=== PATIENT | female | born 1945 | race Caucasian/White ===

== ENCOUNTER 2018-06-25 00:53 | Outpatient (CLI) | payer MEDICARE, BC, SELFPAY ==
--- NOTE | 2018-06-25 14:30 | DI.MAMMO_ITS ---
SYMPTOM/DIAGNOSIS: 6 MONTH F/U ADN MAMMO R92.8 LEFT BREAST MAMMOGRAM: 06/25/18 Mammograms were interpreted according to the usual protocol including computer analysis with CAD system, tomosynthesis and C view imaging. Today's mammogram was obtained to follow a questionable area of asymmetric density seen on previous examination of 11/29/17 The findings are less prominent on the current examination. No new mass or clumped microcalcification is seen. CONCLUSION: No specific evidence of malignancy at this time. I would suggest routine screening examinations resume with bilateral mammogram in six months. Category 3, breast density category B. MQSA ASSESSMENT OF FINDINGS: Probably benign. Six month follow-up recommended. Category 3. Patient will receive a letter notifying them of these results. BI-RADS category B. There are scattered areas of fibroglandular density.
== END 2018-06-25 01:13 ==
PROVIDERS: PCP Nurse Practitioner Family; Visit Provider Nurse Practitioner Gerontology
DX: R92.8 Other abnormal and inconclusive findings on diagnostic imaging of breast (principal)
CPT/HCPCS: 77061; 77065; G0279

== ENCOUNTER 2018-12-19 04:13 | Outpatient (CLI) | payer MEDICARE, BC, SELFPAY ==
[2018-12-19 12:12] LABS: Anion Gap 10.4 mmol/L (3-11); BUN 23 mg/dL (7-18); CO2 29.6 mmol/L (21.0-32.0); CREATININE 0.55 mg/dL (0.55-1.02); Calcium 9.5 mg/dL (8.5-10.1); Chloride 103 mmol/L (98-107); Cholesterol 220 mg/dL (50-200); Glucose 92 mg/dL (70-100); HDL Cholesterol 67 mg/dL (40-60); Hemoglobin A1C 5.3 % (4.5-6.2); LDL CHOLESTEROL 132 mg/dL (<100); Potassium 3.8 mmol/L (3.5-5.1); Sodium 143 mmol/L (136-145); Triglyceride 88 mg/dL (30-150)
== END 2018-12-19 04:33 ==
PROVIDERS: PCP Nurse Practitioner Family; Visit Provider Nurse Practitioner Family
DX: E78.5 Hyperlipidemia, unspecified (principal); R79.89 Other specified abnormal findings of blood chemistry
CPT/HCPCS: 36415; 80048; 80061; 83721; 83036

== ENCOUNTER 2018-12-22 00:24 | Outpatient (CLI) | payer MEDICARE, BC, SELFPAY ==
--- NOTE | 2018-12-22 13:00 | DI.MAMMO_ITS ---
SYMPTOM/DIAGNOSIS: SCREENING, Z12.31 MAMMOGRAMS: Mammograms were interpreted according to the usual protocol including computer analysis with CAD system, tomosynthesis and C view imaging. Comparison is made with exams from 2597-2339. The breasts are composed of scattered fibroglandular densities, breast density, Category B. A biopsy marker clip is again noted in the inferior central right breast. No suspicious masses or suspicious microcalcifications are seen. There are a few benign appearing calcifications in the central right breast. IMPRESSION: Category 2, negative mammogram with benign findings. Yearly screening mammography is recommended. SA ASSESSMENT OF FINDINGS: Negative with benign findings. Category 2. Patient will receive a letter notifying them of these results. BI-RADS category B. There are scattered areas of fibroglandular density.
== END 2018-12-22 00:44 ==
PROVIDERS: PCP Nurse Practitioner Family; Visit Provider Nurse Practitioner Family
DX: Z12.31 Encounter for screening mammogram for malignant neoplasm of breast (principal)
CPT/HCPCS: 77063; 77067

== ENCOUNTER 2020-08-24 04:28 | Outpatient (CLI) | payer MEDICARE, BC, SELFPAY ==
[2020-08-24 13:03] LABS: Anion Gap 7.5 mmol/L (3-11); BUN 17 mg/dL (7-18); CO2 30.5 mmol/L (21.0-32.0); CREATININE 0.61 mg/dL (0.55-1.02); Calcium 9.6 mg/dL (8.5-10.1); Calculated LDL 120 mg/dL (<100); Chloride 104 mmol/L (98-107); Cholesterol 206 mg/dL (<200); Glucose 91 mg/dL (74-106); HDL Cholesterol 70 mg/dL (40-60); Potassium 4.1 mmol/L (3.5-5.1); Sodium 142 mmol/L (136-145); Triglyceride 80 mg/dL (<150)
== END 2020-08-24 04:48 ==
PROVIDERS: PCP Nurse Practitioner Family; Visit Provider Nurse Practitioner Family
DX: I10 Essential (primary) hypertension (principal); E78.5 Hyperlipidemia, unspecified
CPT/HCPCS: 36415; 80048; 80061

== ENCOUNTER 2020-09-21 01:58 | Outpatient (CLI) | payer MEDICARE, BC, SELFPAY ==
--- NOTE | 2020-09-21 07:15 | DI.MAMMO_ITS ---
EXAM: MAMMO SCREENING CLINICAL HISTORY: screening,Z12.39 TECHNIQUE: Mammograms were interpreted according to the usual protocol including computer analysis w Sky[employer] CAD system, tomosynthesis and C-view imaging. COMPARISON: 2011 through 2018 FINDINGS: The breasts are composed of scattered fibroglandular densities, Breast Density category B. No suspicious masses or suspicious microcalcifications are seen. No skin thickening or abnormal axillary lymph nodes are seen. A biopsy marker clip is seen in the in ferior right breast. There has been no significant change from prior exams. IMPRESSION: BI-RADS Category 1, Negative mammogram Yearly screening mammography is recommended. Breast Density - Category B, scattered fibroglandular densities. A negative radiographic report should not delay biopsy if a dominant or clinically suspicious mass is present. Up to ten percent of cancers are not identified on mammography. A negative report may reinforce clinical impression. Adenosis and dense breasts may obscure an underlying neoplasm. False positive reports average 6 to 10%. Patient will receive a letter notifying them of these results.
== END 2020-09-21 01:59 ==
LOC: DI 01:59
PROVIDERS: PCP Nurse Practitioner Family; Visit Provider Nurse Practitioner Family
DX: Z12.31 Encounter for screening mammogram for malignant neoplasm of breast (principal)
CPT/HCPCS: 77063; 77067

== ENCOUNTER 2022-06-15 01:33 | Outpatient (CLI) | payer MEDICARE, BC, SELFPAY ==
--- OUTSIDE RECORDS SUMMARY | 2022-06-15 01:38 | XMS_ITS | Encounter Summary ---
:1945 Author Organization [facility] Address [address] [place] [address] Care Team Providers Name Role Phone Unknown, Provider Primary Care Provider Encounter Details Date Type Department Care Team Description 12/31/2016 Hospital Encounter [facility] - Taylor Hawley MD [address] [address] [address] [place] [phone] (Wo rk) Social History Tobacco Use Types Packs/Day Years Used Date Never Assessed Sex Assigned at Date Recorded Female 05/06/2020 11:10 EDT documented as of this encounter Discharge Diagnoses Diagnosis D48.5 Neoplasm of uncertain behavior of skin-D48.5[ICD-10-CM] documented in this encounter Discharge Disposition Disposition Code Departure Means Destination Home or Self Care documented in this encounter Plan of Treatment Not on filedocumented as of this encounter Visit Diagnoses Not on filedocumented in this encounter Care Teams Foundation Digger Relationship Specialty Start Date End Date Unknown, Provider, PCP - General 05/12/09 documented as of this encounter
--- OUTSIDE RECORDS SUMMARY | 2022-06-15 01:38 | XMS_ITS | Encounter Summary ---
:1945 Author Organization [facility] Address [address] [place] [address] Care Team Providers Name Role Phone Unknown, Provider Primary Care Provider Encounter Details Date Type Department Care Team Description 10/17/2012 Results Only [facility] Nasrin Espinoza MD Laboratory Services - [address] [facility] [address] [facility] [address] [place] [phone] (Wo rk) Social History Tobacco Use Types Packs/Day Years Used Date Never Assessed Sex Assigned at Date Recorded Female 05/06/2020 11:10 EDT documented as of this encounter Plan of Treatment Not on filedocumented as of this encounter Procedures Procedure Name Priority Date/Time Associated Diagnosis Comme [facility] SURGICAL PATHOLOGY Routine 10/17/2012 14:14 Resul ts for this EST procedure are i n the results section. documented in this encounter Results SURGICAL PATHOLOGY (10/17/2012 14:14 EST) Pathology Report: SURGICAL PATHOLOGY REPORT [facility] ST[facility] Reports generated via electronic interface contain maria luz ginal data; LAB however they are lacking the format of the original re port. Caution should be taken when reading/interpreting unfo rmatted reports. Name: ? MICHOAACNO HWANG ? Accession #: ? [id number] ? : ? 1945 (Age: 67) ??F ? Collect Date: ? 10/17/2012 ? Location: ? [facility] ? Receive Date: ? 013 ? Provider: NASRIN ESPINOZA MD Copy to: KIESHA NAIK MD ? Final Pathologic Diagnosis: A. ?Skin of abdomen, right, shave biopsy: 1. ?Hemangioma. ?? B. ?Skin of arm, left anterior upper, sha ve biopsy: 1. ?Melanocytic nevus, compound lentigino us type, with unusual architectural features and mild cytologic atypia. ? - Nevus does not exte nd to edges of shave biopsy specimen in the plane of the sections ?? examined. Microscopic Description: (A) ?There is a dome-shaped papule formed by a proliferation of small vascular channels that has a lobular architecture. ??The vessels are lined by an attenuated endothelium. ??Some of the vessels are scarlett ested. ??The overlying epidermis has a diminished rete ridge pattern. ?? (B) ?The epider mis shows mild hyperplasia consisting of thin and clubbed rete ridges. ??There is a compound proliferation of me lanocytes. ??The intraepidermal component consists of rare nests but is predominated by individual cells in a lentig inous pattern. ??The nests are small and located at the tips of rete ridges. ??T he individual melanocytes are generally evenly spaced along the dermal-epidermal j unction. ??The melanocytes are slightly enlarged and have dark nuclei. ??The dermal component consists of s mall nests of similar cells. ??There is abundant m elanin pigment within the epidermis, stratum corneum, and dermal melanophages. ??(Dr. Bush)/michael Document reviewed and electronically signed by: ELSA BUSH MD Report ??Date: 10/20/2012 16:05 By the signature above, the attending physician certif ies that he/she has personally conducted a gross and/or microscopic examin ation of the described specimens and rendered or confirmed the above diagnosi s. Specimen(s) Received: A. ?R abdomen shave biopsy B. ? Left anterior upper arm shave biopsy Clinical History: ? A. Bright drake-red papule, Ddx: ??Hemangioma vs melanoma; B. Irregular brown macule, Ddx: ??Atypica l nevus vs melanoma; clinical diagnosis code: ??238.2 x2 ? Gross Description: ? Received in formalin labelled [place], Elva and A-R abdomen is a 0.6 x 0.5 cm irregular shave biopsy of white skin. ??There is a central 0.4 x 0.3 by less than 0.1 cm ovoid, b rown-black, smooth papule. ??The specimen is bisected and entirely submitted as (A1). Received in formalin labelled MitchElva and B-left anterior upper arm is a 0.5 x 0.5 cm irreg ular shave biopsy of white skin. ??There is a central 0.3 x 0.2 cm irregular pederson-b rown macule. ??The specimen is bisected and entirely submitted as (B1). ??(Oscar Chavarria)/[facility] End of Report Specimen Performing Organization Address City/State/ZIP Code Phon e Number [facility] [address] [place] [address] SERVICES [facility] [address] [place] [address] documented in this encounter Visit Diagnoses Not on filedocumented in this encounter Care Teams Software Test Technician Relationship Specialty Start Date End Date Unknown, Provider, PCP - General 05/12/09 documented as of this encounter
--- OUTSIDE RECORDS SUMMARY | 2022-06-15 01:38 | XMS_ITS | Clinical Summary ---
:1945 Author Organization [facility] Address [address] [place] [address] Care Team Providers Name Role Phone Unknown, Provider Primary Care Provider Social History Tobacco Use Types Packs/Day Years Used Date Never Assessed Sex Assigned at Date Recorded Female 05/06/2020 11:10 EDT Plan of Treatment Health Maintenance Due Date Last Done Comments Fall Risk Screening 2009 Insurance Payer Benefit Plan / Subscriber ID Effective Phone Address T ype Group Dates MEDICARE MEDICARE A/B [id number] 2009-Pres [address] Medicare GL ent [id number] [place] [address] [facility] [id number] 2018-Prese [phone] [address] [facility] [employer] [address] [place] [address] Care Teams Unit Clerk Relationship Specialty Start Date End Date Unknown, Provider, PCP - General 05/12/09
--- OUTSIDE RECORDS SUMMARY | 2022-06-15 01:38 | XMS_ITS | Encounter Summary ---
:1945 Author Organization [facility] Address [address] [place] [address] Care Team Providers Name Role Phone Unknown, Provider Primary Care Provider Encounter Details Date Type Department Care Team Description 10/17/2012 Hospital Encounter [facility] - Taylor Hawley MD [address] [address] [address] [place] [phone] (Wo rk) Social History Tobacco Use Types Packs/Day Years Used Date Never Assessed Sex Assigned at Date Recorded Female 05/06/2020 11:10 EDT documented as of this encounter Discharge Disposition Disposition Code Departure Means Destination Home or Self Care documented in this encounter Plan of Treatment Not on filedocumented as of this encounter Visit Diagnoses Not on filedocumented in this encounter Care Teams Fashion Buyer Relationship Specialty Start Date End Date Unknown, Provider, PCP - General 05/12/09 documented as of this encounter
--- OUTSIDE RECORDS SUMMARY | 2022-06-15 01:38 | XMS_ITS | Encounter Summary ---
:1945 Author Organization [facility] Address [address] [place] [address] Care Team Providers Name Role Phone Unknown, Provider Primary Care Provider Encounter Details Date Type Department Care Team Description 05/11/2009 Orders Only [facility] Christelle Hoff MD Laboratory Services - Daisy GALLEGOS [facility] [address] [place] [address] [address] [facility] [place] [address] [phone] Social History Tobacco Use Types Packs/Day Years Used Date Never Assessed Sex Assigned at Date Recorded Female 05/06/2020 11:10 EDT documented as of this encounter Plan of Treatment Not on filedocumented as of this encounter Procedures Procedure Name Priority Date/Time Associated Comments Diagnosis HPV DETECTION, HIGH Routine 05/11/2009 23:20 Resu lts for this RISK TYPES EDT procedure are i n the results section. CYTOPATHOLOGY Routine 05/11/2009 0:00 Results for this EDT procedure are i n the results section. documented in this encounter Results HUMAN PAPILLOMA VIRUS DNA TEST (05/11/2009 23:20 EDT) Specimen Description Cervix, ThinPrep [facility] vial Result Negative for HPV KELLY BETHEA types 16, 18, 31, 33, 35, 39, 45, 51, 52, 56, 58, 59, and 68. Report Status Final [facility] 05/24/2009 Specimen Performing Organization Address City/State/ZIP Code Phon e Number [facility] [address] [place] [address] SERVICES [facility] [address] [place] [address] CYTOPATHOLOGY (05/11/2009 0:00 EDT) Pathology Report: CYTOPATHOLOGY REPORT ? [facility]OSH [facility] ? LAB Reports generated via electr [employer] interface contain original data; ? however they are lacking the format of the original report. ? Caution should be taken when reading/interpreting unformatted reports. ? Name: ? MICHOACANO HWANG ? Accession #: ? [id number] ? : ? 1945 (Age: 63) ??F ?Collect Date: ? 05/11/2009 ? Location: ? [facility] ? Receive Date: ? 05/12/2009 ? Provider: ?KIESHA GRES SER MD ? Copy to: ? Specimen/Source: ? Pap Test, Cervix/Endocervix, ThinPrep Imaging System ? with manual evaluation ? Last Menstrual Period: ? Menstrual/ Status: ? Post Menopausal ? Other: ? HPVDX - HPV testing requeste d regardless of diagnosis on current ThinPrep Pap ?? test. ? SPECIMEN ADEQUACY ? Satisfactory for Eval uation ? - transformation zone compon ent present ? - scant squamous epithelial component ? GENERAL CATEGORIZATION ? Negative for Intraepi thelial Lesion or Malignancy ? Document reviewed and electr onically signed by: ? Lynan Khris, CT(ASCP) ? Report Date: ??2008 16:27 ? End of Report ? Specimen Performing Organization Address City/State/ZIP Code Phon e Number [facility] [address] [place] [address] SERVICES [facility] [address] [place] [address] documented in this encounter Visit Diagnoses Not on filedocumented in this encounter Care Teams Counselor Aide Relationship Specialty Start Date End Date Unknown, Provider, PCP - General 05/12/09 documented as of this encounter
--- OUTSIDE RECORDS SUMMARY | 2022-06-15 01:38 | XMS_ITS | Encounter Summary ---
:1945 Author Organization [facility] Address [address] [place] [address] Care Team Providers Name Role Phone Unknown, Provider Primary Care Provider Encounter Details Date Type Department Care Team Description 12/31/2016 Results Only [facility]- Nasrin Lowery MD [phone] [place] [address] [address] [place] [phone] (Wo rk) Social History Tobacco Use Types Packs/Day Years Used Date Never Assessed Sex Assigned at Date Recorded Female 05/06/2020 11:10 EDT documented as of this encounter Plan of Treatment Not on filedocumented as of this encounter Procedures Procedure Name Priority Date/Time Associated Diagnosis Comme [facility] SURGICAL PATHOLOGY Routine 12/31/2016 16:07 Resul ts for this EDT procedure are i n the results section. documented in this encounter Results SURGICAL PATHOLOGY (12/31/2016 16:07 EDT) Pathology SURGICAL PATHOLOGY REPORT [facility] MEDICAL Report: Reports generated via electronic interface conta in original data; CENTER however they are lacking the format of the original re port. LABORATORY Caution should be taken when reading/interpretin g unformatted reports. SERVICES Name: ? MICHOACANO HWANG ? Accession #: ? [id number] ? : ? 1945 (Age: 71) ??F ? Collect Date: ? 12/31/2016 ? Location: ? [facility] ? Receive Date: ? 01/01/20 17 ? Provider: NASRIN FALLON MD Copy to: ? Final Pathologic Diagnosis: SKIN OF THIGH, RIGHT DISTAL POSTERIOR, PUNCH BIOPSY: - Angiokeratoma. ?? Microscopic Description: There is orthohyperkeratosis with intracorneal h emorrhage. ??The epidermis is hyperplastic with papillomatosis and acanthosis. ??Imm ediately beneath the epidermis, there are dilated vessels corey t are filled with erythrocytes. ??(Dr. Bush)/ljn Document reviewed and electronically signed by: ELSA BUSH MD Report ??Date: 01/01/2017 20:21 By the signature above, the attending physician certif ies that he/she has personally conducted a gross and/or microscopic examin ation of the described specimens and rendered or confirmed the above diagnosi s. Specimen(s) Received: Right distal posterior thigh punch biopsy Clinical History: Irregular brown macule, DDx: Atypical ne vus vs. melanoma vs. hemangioma on top of a nevus; clinical diagnosis code: ??D48.5 Gross Description: ? Received in formalin labelled with proper patient identification (initials B, C) and right distal posterior thigh is an ovoid rubbery skin shave, 0.5 x 0.3 x 0.15 cm. The surface is huerta-brown. The margin i s inked. Bisected and entirely submitted in 1. HENRRY Neri (ASCP) 01/01/2017 7:52 AM End of Report Specimen Performing Organization Address City/State/ZIP Code Phon e Number [facility] [address] [place] [id number] SERVICES documented in this encounter Visit Diagnoses Not on filedocumented in this encounter Care Teams Pantograph Machine Set Up Operator Relationship Specialty Start Date End Date Unknown, Provider, PCP - General 05/12/09 documented as of this encounter
--- OUTSIDE RECORDS SUMMARY | 2022-06-15 01:38 | XMS_ITS | Encounter Summary ---
:1945 Author Organization [facility] Address [address] [place] [address] Care Team Providers Name Role Phone Unknown, Provider Primary Care Provider Encounter Details Date Type Department Care Team Description 05/04/2020 Lab Requisition [facility] Reginald Dillon for Pathology & Ez [facility] screening for other Laboratory Medicine - [address] [facility] [address] [place] [phone] Social History Tobacco Use Types Packs/Day Years Used Date Never Assessed Sex Assigned at Date Recorded Female 05/06/2020 11:10 EDT documented as of this encounter Discharge Disposition Disposition Code Departure Means Destination Home or Self Care documented in this encounter Plan of Treatment Not on filedocumented as of this encounter Procedures Procedure Name Priority Date/Time Associated Diagnosis Comme nts COVID-19 ALFARO TEST Today 05/04/2020 10:30 Encounter for Resu lts for this EDT screening for other procedur e are in viral diseases the results section. documented in this encounter Results COVID-19 ALFARO TEST (05/04/2020 10:30 EDT) SARS CoV-2 Nasal [facility] Specimen Source LABORATORIES Patient Race Unknown [facility] LABORATORIES Patient Unknown [facility] Ethnicity LABORATORIES SARS-CoV-2 RNA Undetected Undetected [facility] Result Comment: LABORATORIES SARS-CoV-2 RNA absent. This result does not rule out COVID-19 in the patient, as the sensitivity of the marycarmen t depends on the timing of the specimen collection and t he quality of the specimen. Result should be correlated w ith patient's history and clinical presentation. Method Summary SEE NOTE [facility] Comment: LABORATORIES PKELM- This test uses the PerkinElmer New Coronavirus Nucleic Acid Detection Kit ([employer] and is performed on the PlastiPure instrument and [employer] 7500 Fast Real-Time PCR System. It has rece ived Emergency Use Authorization (EUA) by the U.S. Food and Drug Administration, and is modified from the checker cashier' s instructions with a bridging study. Performance characteristics were verified by [facility] in a [facility] er consistent with CLIA requirements. Fact sheets for this Emergency Use Authorization (EUA) can be found at the following links: https://www.fda.gov/media/043468/download for [facility] re Providers https://www.fda.gov/media/043534/download for Patients Test Performed by: [address] Maintenance Supervisor: Sergey Anthony M.D. Ph.D.; CLIA# [id number] Specimen Swab - Nasal (qualifier value) Performing Organization Address City/State/[facility] Code Phon e Number [facility] [address] [place] [address] documented in this encounter Visit Diagnoses Diagnosis Encounter for screening for other viral diseases documented in this encounter Care Teams Zipper Setter Lockstitch Relationship Specialty Start Date End Date Unknown, Provider, PCP - General 05/12/09 documented as of this encounter
--- OUTSIDE RECORDS SUMMARY | 2022-06-15 01:38 | XMS_ITS | Encounter Summary ---
:1945 Author Organization [facility] Address [address] [place] [address] Care Team Providers Name Role Phone Unknown, Provider Primary Care Provider Encounter Details Date Type Department Care Team Description 04/28/[address] [facility]- Peter Traylor, [address] [place] [address] [address] [place], [place] [id number] (Wo rk) Social History Tobacco Use Types Packs/Day Years Used Date Never Assessed Sex Assigned at Date Recorded Female 05/06/2020 11:10 EDT documented as of this encounter Plan of Treatment Not on filedocumented as of this encounter Procedures Procedure Name Priority Date/Time Associated Diagnosis Comme [facility] SURGICAL PATHOLOGY Routine 04/28/2015 17:15 Resul ts for this EDT procedure are i n the results section. documented in this encounter Results SURGICAL PATHOLOGY (04/28/2015 17:15 EDT) Pathology Report: SURGICAL PATHOLOGY REPORT [facility] Reports generated via electronic interface contain maria luz ginal data; LABORATORY however they are lacking the format of the original re port. SERVICES Caution should be taken when reading/interpreting unfo rmatted reports. Name: ? MICHOACANO HWANG ? Accession #: ? [id number] ? : ? 1945 (Age: 69) ??F ? Collect Date: ? 04/28/2015 ? Location: ? [facility] ? Receive Date: ? 04/29/20 15 ? Provider: PETER MOSES MD Copy to: KIESHA ZHANG MD ? Final Pathologic Diagnosis: APPENDIX, APPENDECTOMY: - ??Acute appendicitis and periappendicitis. Document reviewed and electronically signed by: Ruth Roca MD Report ??Date: 05/06/2015 15:16 By the signature above, the attending physician certif ies that he/she has personally conducted a gross and/or microscopic examin ation of the described specimens and rendered or confirmed the above diagnosi s. Specimen(s) Received: Appendix Clinical History: Appendicitis Gross Description: ? Received fresh labell ed with proper patient identification (initials B, C) and appendix is a vermiform appendix ( 4.5 cm in length x 0.7 cm in diameter) with a moderate amount of at tached mesoappendix. The proximal margin is stapled. ? The serosa is pederson-pin k and focally hemorrhagic with a thick white exudate that extends into the mesoappendix. The cut surf aces show pederson-pink, partially hemorrhagic mucosa with a discernible perforation site . The average wall thickness is approximately 0.3 cm. The proximal margin is inked blue. ? The section adjacent to the proxi mal stapled margin and one-half of the longitudinally bisected distal tip are s ubmitted in 1 and three phone representative cross sections are submitted in 2. 05/02/2015 3:18 PM End of Report Specimen Performing Organization Address City/State/ZIP Code Phon e Number [facility] [address] [place] [address] SERVICES documented in this encounter Visit Diagnoses Not on filedocumented in this encounter Care Teams Auto Body Estimator Relationship Specialty Start Date End Date Unknown, Provider, PCP - General 05/12/09 documented as of this encounter
[2022-06-15 12:32] LABS: Anion Gap 7.4 mmol/L (3-11); BUN 23 mg/dL (7-18); CO2 29.6 mmol/L (21.0-32.0); CREATININE 0.6 mg/dL (0.55-1.02); Calcium 9.6 mg/dL (8.5-10.1); Calculated LDL 145 mg/dL (<100); Chloride 105 mmol/L (98-107); Cholesterol 231 mg/dL (<200); Estimated GFR 92.39 (mL/min/1.73m2); Glucose 94 mg/dL (74-106); HDL Cholesterol 70 mg/dL (40-60); Potassium 4.1 mmol/L (3.5-5.1); Sodium 142 mmol/L (136-145); Triglyceride 82 mg/dL (<150)
== END 2022-06-15 01:34 | disposition home or self-care (01) ==
LOC: LOS 01:33
PROVIDERS: PCP Nurse Practitioner Family; Visit Provider Nurse Practitioner Family
DX: E78.5 Hyperlipidemia, unspecified (principal); I10 Essential (primary) hypertension
CPT/HCPCS: 36415; 80048; 80061

== ENCOUNTER 2022-07-29 12:12 | Emergency (ER) | payer MEDICARE, BC, SELFPAY ==
--- NOTE | 2022-07-29 12:15 | DI.CT_ITS ---
Exam(s) CT HEAD FACIAL WO EXAM: CT HEAD FACIAL WO CLINICAL HISTORY: fell, hit face, r/o fx. TECHNIQUE: Imaging Protocol: Axial computed tomography images with coronal and sagittal reformatted images were created and reviewed COMPARISON: No exams were available for comparison FINDINGS: CT Head: Ventricles and Extra axial spaces: Normal in size and morphology for the patient's age. Hemorrhage: None. Cerebral parenchyma: Minimal atrophy. Minimal small vessel changes. Midline shift: None. Brainstem/Cerebellum: Normal. Calvarium: Normal. Visualized Paranasal sinuses/Mastoids: Clear. Soft Tissues: Unremarkable. CT Face: Facial Bones: No fracture is noted in facial bones. Sinuses and Mastoids: Mucous retention at floors of the maxillary sinuses, left greater than right. Minimal mucosal thickening sphenoids. Globes, extraocular muscles, optic nerves and retrobulbar fat: Normal. Upper aerodigestive tract: Normal. Mandible and bilateral temporomandibular joints: Normal. Soft tissues: Small skin nodule midline frontal region. IMPRESSION: 1. No acute intracranial process. 2. No acute facial fracture. Mild chronic maxillary sinus disease. RADIATION DOSE DELIVERED: 1,590.77mGy.cm Total DLP DATA REPOSITORY: All CT scans at this facility are submitted to the National Radiology Data Registry (NRDR) Dose Index Registry (DIR) with the [employer] (ACR). RADIATION OPTIMIZATION: All CT scans at this facility use at least one of these dose optimization te chniques: automated exposure control; mA and/or kV adjustment per patient size (includes targeted exa ms where dose is matched to clinical indication); or iterative reconstruction.
[2022-07-29 12:23] VITALS: BP 163/76; PULSE 68; RESP 16; TEMP 36.3; O2SAT 100
--- NOTE | 2022-07-29 12:33 | W.ED.GENAD ---
Discharge Plan Disposition Patient Disposition: Home Condition: Good Discharge Details Clinical Impression: Laceration of scalp, Concussion Primary Care Provider: Ann Coffey ED Provider: Paulo Lyles Home Meds and New Rx's Prescriptions: No Action PreserVision AREDS-2 250-90-40-1 mg capsule 1 tab PO BID SCOT MAG ZINC + D TAB 1 EACH tablet 1 tab PO DAILY ascorbic acid (vitamin C) [Vitamin C] 500 MG tablet 500 mg PO DAILY red yeast rice 600 mg tablet 1,200 mg PO DAILY vitamin B complex capsule 1 cap PO DAILY Label Comments: B-50 benazepril-hydrochlorothiazide 20-25 mg tablet 1 tab PO DAILY Qty: 90 4RF Discharge Instructions Instructions: Care For Your Stitches (ED), Concussion (ED) Additional Instructions: At this time the CT scan of your head is negative for any bleed or significant abnormality. The laceration was sutured, please keep this area dry for the next 48 hours. You can then gently wash it with soap and water as needed. Please return in 7 to 10 days to have your sutures removed. If you notice any drainage, redness, or other abnormality at your suture site, please return immediately for reassessment. If you have any worsening of your symptoms please return immediately. Please be very cognizant of any evidence of worsening headache, vomiting, weakness, numbness, dizziness, decreased concentration, memory problems, sleep disturbance, irritability, fatigue, visual disturbances, judgment problems, depression, or anxiety. These may represent a worsening of your condition or a different, or worse pathology. Please either return immediately for reevaluation or follow up with your primary care provider immediately for continued assessment, reassessment, and management. Please avoid any contact sports, or activities which could cause jarring of your head. A second repeat injury can cause significant and permanent brain damage. After you have complete resolution of any of the symptoms noted above please wait one COMPLETE week until you resume normal gentle physical activity. If you have any return of the symptoms after this, please again wait 1 week after you have complete resolution of your symptoms to return to gentle and normal activities. Referrals: Ann Coffey, JASSI [Primary Care Provider] - Medical Decision Making 76-year-old female with past medical history of high cholesterol, and hypertension, presents today for follow-up. Tetanus was updated in 2016. Patient states that she was in her house watering her plants when she was wearing her clumsy clogs and she tripped over them, she fell, and hit her right brow and the back of her head. No loss of consciousness, she recalls the entire event. She is not unable blood thinners. Due to the nature of the fall she came in for further evaluation and assessment. She denies any headache or neck pain. Mild contusion over her right elbow right scapula and left knee, but no pain. No other complaints at this time. No other modifying factors Exam demonstrates a well-appearing female, small laceration over the right brow, no other evidence of significant trauma. Due to the age and mechanism we will get a CT scan of the head and face to rule out fracture. Will suture her laceration, monitor closely and reassess. [address] scan results have returned, no evidence of significant acute process. Patient feels well. Patient shows no evidence of neurologic deficit on exam. Laceration was cleaned, the area was anesthetized with lidocaine, 3 simple interrupted sutures were placed with 5-0 Ethilon. Patient tolerated this well. Small amount of Dermabond was applied to the area. Patient feels well and will be discharged home. Tetanus is up-to-date. Discussed red flags for which to return. I have extensively reviewed the treatment plan and discharge instructions with the patient and their family. I have addressed all patient concerns at this time. The patient and family was made aware of what symptoms to monitor for that would warrant a return to the emergency department. Discussed the plan with the patient and family, they demonstrate verbal understanding and agreement with our assessment and plan at this time. The documentation in this chart was dictated using [employer] dictation software. Please excuse any dictation errors. FINDINGS: Brain: No acute post-traumatic brain injury. Symmetric prominence of the cortical and cerebellar sulci. Mild small vessel ischemic change. Cerebral ventricles: Normal configuration of the ventricles. Paranasal sinuses: Maxillary sinus mucoperiosteal disease. Mastoid air cells: No mastoid effusion. Bones/joints: No acute calvarial injury. Soft tissues: No significant scalp hematoma. IMPRESSION: No acute post-traumatic brain injury FINDINGS: Beam hardening artifact is identified in association with dental amalgam. Orbital cavities: Unremarkable appearance of the globes, optic nerves, and extraocular muscles. Bones/joints: No acute facial fracture. Paranasal sinuses: Asymmetric inflammatory change in the maxillary sinuses, right greater than left. Soft tissues: No significant facial soft tissue swelling. 5 mm cutaneous nodule in the frontal midline. IMPRESSION: No acute facial fracture. Thank you for allowing us to participate in the care of your patient. Dictated and Authenticated by: Keith Negron MD 07/29/2022 1:34 PM Eastern Time ([place] & [place]) HPI General Date/Time Provider Initiated Documentation: 07/29/22 12:23. HPI Narrative: 76-year-old female with past medical history of high cholesterol, and hypertension, presents today for follow-up. Tetanus was updated in 2016. Patient states that she was in her house watering her plants when she was wearing her clumsy clogs and she tripped over them, she fell, and hit her right brow and the back of her head. No loss of consciousness, she recalls the entire event. She is not unable blood thinners. Due to the nature of the fall she came in for further evaluation and assessment. She denies any headache or neck pain. Mild contusion over her right elbow right scapula and left knee, but no pain. No other complaints at this time. No other modifying factors Related Data Home Medications Medication Instructions Recorded Confirmed Scot Mag Zinc + D Tab 1 tab PO DAILY 04/02/12 07/29/22 ascorbic acid (vitamin C) 500 mg 500 mg PO DAILY 05/25/13 07/29/22 tablet (Vitamin C) red yeast rice 600 mg tablet 1,200 mg PO DAILY 12/15/18 07/29/22 vitamin B complex 1 cap PO DAILY 12/15/18 07/29/22 benazepril 20 1 tab PO DAILY #90 tabs 09/11/21 07/29/22 mg-hydrochlorothiazide 25 mg tablet vit C 250 mg-vit E 90 mg-zinc 40 1 tab PO BID 06/06/22 07/29/22 mg-copper 1 dm-bezwjm-zfdaol capsule (PreserVision AREDS-2) Previous Rx's Medication Instructions Recorded benazepril 20 1 tab PO DAILY #90 tabs 09/11/21 mg-hydrochlorothiazide 25 mg tablet Allergies Allergy/AdvReac Type Severity Reaction Status Date / Time No Known Drug Allergies Allergy Unverified 07/29/22 12:29 General Stated Complaint: Trauma JING: 2 Review of Systems All systems reviewed & are unremarkable except as noted in HPI and below PFSH All Active Problems (Updated 07/29/22 @ 14:23 by Paulo Lyles DO) Laceration of scalp (Acute) Concussion (Acute) Hyperlipidemia (Chronic) Essential hypertension (Chronic) Medical History Basal cell carcinoma Left cheek Malignant melanoma of skin (08/11/07) Right inner thigh Surgical History S/P appendectomy (04/28/15) S/P right rotator cuff repair (01/17/16) S/P tonsillectomy and adenoidectomy (~1950) Family History Mother , at 100 Essential hypertension Breast cancer Macular degeneration Father , at 24 while fighting in WW[place] No problems noted. Son No problems noted. Maternal Grandfather , at 31 of TB No problems noted. Maternal Grandmother Colitis Paternal Grandfather Stroke Paternal Grandmother Stroke Social History Smoking/Tobacco Use Status: Former Tobacco Use Quit Date: 08/12/70 Tobacco: How many years used: 4 Second Hand Exposure: Yes Smoking risk assessment performed?: Yes Alcohol Intake: current Alcohol Intake frequency: 0-2 drinks per day Alcohol type: wine Drug use: Never Substance use type: former substance user and marijuana Caregiver/Support person: No Household members: spouse Housing: house Communication Needs: None Do you need help understanding health information?: Never Pets and animals: No Sexually active: Yes Do you think of yourself as: straight/heterosexual Current gender identity: female What is your relationship status?: How often do you talk on the phone with friends or family?: three or more times per week How often do you get together with friends or relatives?: once per week How often do you attend yarsani or confucianist services?: 1-3 times per year Do you belong to any clubs or organized social groups?: yes Panel score (0-1 are the most socially isolated patients): 3 NHANES result reviewed/action taken: Yes What type of physical activity do you participate in: walking, bicycling and other Details: PT Duration: 45-60 minutes/day Frequency: 3-4 times per week Tawnya/Anabaptist: Restoration Special tawnya needs: No Seatbelt use: always Drive intox or ride w/intox rental car ferry driver: No Do you feel safe at home: Yes Do you feel safe in your relationship?: Yes Female Reproductive History Menstrual Menopause type: natural History History 6 Para Hx # Term Pregnancies Multiple births Hx # Pregnancies Ectopic pregnancies AB induced Hx Number of Living Children 1 AB spontaneous 5 Exam Narrative Exam Narrative: 1.Const: Well-nourished, Well-developed, appearing stated age 2.Eyes: PERRL, no conjunctival injection, and symmetrical lids. 3.ENT: Atraumatic external nose and ears. Moist MM. Neck: Symmetric, trachea midline, No thyromegaly. There is no evidence of raccoon eyes, randle sign, CSF rhinorrhea, mastoid tenderness, cranial crepitus, hemotympanum, exophthalmos, or hyphema. Patient demonstrates intact dentition with no signs of tooth avulsion or fracture, no signs of jaw deformity, no evidence of a LeFort's fracture, with an intact palate, nose and orbital region. There is no evidence of a nasal septal hematoma. No proptosis. Jaw closes symmetrically. Airway is clear. There is a small linear laceration about 3-1/2 cm on the right brow. No deep tissue involvement. Mild oozing. 4.CVS: +S1/S2, No murmurs or gallops. Peripheral pulses 2+ and equal in all extremities. Brisk capillary refill in all extremities. 5.RESP: Unlabored respiratory effort. Clear to auscultation bilaterally. No wheezes rales or rhonchi 6.GI: Soft, Nontender/Nondistended, No hepatosplenomegaly. No guarding or rebound. 7.MSK: Normocephalic/Atraumatic, Extremities w/o deformity or ttp No cyanosis or clubbing, Normal movement of all extremities. No midline cervical thoracic or lumbar spine tenderness. 8.Skin: Warm, Dry. 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 Sensation grossly intact, no focal neurologic deficits. All 6 cardinal planes of vision are fully intact. No evidence of rotatory or vertical nystagmus. The patient demonstrated a normal fmudmj-deyf-xhotbk, good dexterity. There was no evidence of dysdiadochokinesia. Patient was able to ambulate without difficulty. There was no wide-based gait. Romberg testing was normal. Mjef-dd-gscg testing was normal. Sensation was intact bilaterally as well as muscle strength bilaterally for all extremities. Patient was able to verbalize butter cup with no slurring, or miss pronunciation. 10.Psych: (AAO) x3. Appropriate mood and affect Course Vital Signs Vital signs: Vital Signs Temperature 36.3 C L 07/29/22 12:23 Pulse 68 07/29/22 12:23 Respiratory Rate 16 07/29/22 12:23 Blood Pressure 163/76 H 07/29/22 12:23 Pulse Oximetry 100 07/29/22 12:23 Temperature 36.3 C L 07/29/22 12:23 Temperature Source Temporal Artery Scan 07/29/22 12:23 Pulse 68 07/29/22 12:23 Respiratory Rate 16 07/29/22 12:23 Blood Pressure 163/76 H 07/29/22 12:23 Blood Pressure Position Sitting 07/29/22 12:23 Pulse Oximetry 100 07/29/22 12:23 Oxygen Delivery Method Room Air 07/29/22 12:23 Oxygen Flow Rate 0 07/29/22 12:23 Pain Level 5 07/29/22 12:23 Procedures Laceration Laceration 1: Site: face Side (If applicable): right Size (cm): 3 Description: linear Depth: simple, single layer Local Anesthetic: Lidocaine 1% Amount of anesthesia used (mL): 5 Pre-repair: wound explored, irrigated extensively and deep structures intact Skin layer closed with: nylon Size (cm): 5-0 Number of sutures: 3 Technique: simple, interrupted
--- NOTE | 2022-07-29 13:34 | DI.VRAD_ITS ---
PROCEDURE INFORMATION: Exam: CT Head Without Contrast Exam date and time: 07/29/2022 1:07 PM Age: 76 years old Clinical indication: Other: Fell, hit face, R/O FX TECHNIQUE: Imaging protocol: Computed tomography of the head without contrast. Radiation optimization: All CT scans at this facility use at least one of these dose optimization techniques: automated exposure control; mA and/or kV adjustment per patient size (includes targeted exams where dose is matched to clinical indication); or iterative reconstruction. COMPARISON: No relevant prior studies available. FINDINGS: Brain: No acute post-traumatic brain injury. Symmetric prominence of the cortical and cerebellar sulci. Mild small vessel ischemic change. Cerebral ventricles: Normal configuration of the ventricles. Paranasal sinuses: Maxillary sinus mucoperiosteal disease. Mastoid air cells: No mastoid effusion. Bones/joints: No acute calvarial injury. Soft tissues: No significant scalp hematoma. IMPRESSION: No acute post-traumatic brain injury. PROCEDURE INFORMATION: Exam: CT Maxillofacial Without Contrast Exam date and time: 07/29/2022 1:07 PM Age: 76 years old Clinical indication: Other: Fell, hit face, R/O FX TECHNIQUE: Imaging protocol: Computed tomography of the face without contrast. Radiation optimization: All CT scans at this facility use at least one of these dose optimization techniques: automated exposure control; mA and/or kV adjustment per patient size (includes targeted exams where dose is matched to clinical indication); or iterative reconstruction. COMPARISON: No relevant prior studies available. FINDINGS: Beam hardening artifact is identified in association with dental amalgam. Orbital cavities: Unremarkable appearance of the globes, optic nerves, and extraocular muscles. Bones/joints: No acute facial fracture. Paranasal sinuses: Asymmetric inflammatory change in the maxillary sinuses, right greater than left. Soft tissues: No significant facial soft tissue swelling. 5 mm cutaneous nodule in the frontal midline. IMPRESSION: No acute facial fracture. Dictated and Authenticated by: Keith Negron MD. Ordering:ISELA Bates MD
== END 2022-07-29 14:29 | disposition home or self-care (01) ==
PROVIDERS: Emergency Provider Student in an Organized Health Care Education/Training Program; PCP Nurse Practitioner Family
DX: S01.01XA Laceration without foreign body of scalp, initial encounter (principal); S01.81XA Laceration without foreign body of other part of head, initial encounter; E78.00 Pure hypercholesterolemia, unspecified; W01.0XXA Fall on same level from slipping, tripping and stumbling without subsequent striking against object, initial encounter; Y93.89 Activity, other specified; Y92.009 Unspecified place in unspecified non-institutional (private) residence as the place of occurrence of the external cause
CPT/HCPCS: 12013; 99284; 70450; 70486; 99282

== ENCOUNTER 2022-11-23 18:47 | Emergency (ER) | payer MEDICARE, BC, SELFPAY ==
[2022-11-23 18:53] VITALS: BP 178/74; PULSE 63; RESP 18; TEMP 36.2; O2SAT 99
--- NOTE | 2022-11-23 19:06 | ED.GENADUL_ITS ---
Discharge Plan Disposition Patient Disposition: Home Discharge Details Clinical Impression: Skin tear of elbow without complication, Laceration of face Primary Care Provider: Ann Coffey ED Provider: Derek Danielson Meds and New Rx's Prescriptions: Continued PreserVision AREDS-2 250-90-40-1 mg capsule 1 tab PO BID SCOT MAG ZINC + D TAB 1 EACH tablet 1 tab PO DAILY ascorbic acid (vitamin C) [Vitamin C] 500 MG tablet 500 mg PO DAILY red yeast rice 600 mg tablet 1,200 mg PO DAILY vitamin B complex capsule 1 cap PO DAILY Patient Comments: B-50 benazepril-hydrochlorothiazide 20-25 mg tablet 1 tab PO DAILY Qty: 90 3RF amoxicillin 500 mg capsule Patient Comments: TAKE 1 CAPSULE BY MOUTH EVERY 8 HOURS UNTIL GONE Discharge Instructions Instructions: Fall Prevention for Older Adults (ED), Skin Adhesive Care (ED), Facial Laceration (ED) Additional Instructions: You were seen after a fall at home with injury to your right cheek and right elbow. Your tetanus was updated. Your wounds were cleaned and they were closed with skin adhesive per your preference. Do not scrub the area but you may otherwise shower. Watch for signs of infection. Ice on and off over the weekend. Acetaminophen or ibuprofen as needed for pain. Follow-up with primary care next week if any concerns. Return to ED for increasing pain, redness, swelling, drainage. Medical Decision Making Patient presenting to ED status post fall at home. She struck her face on a dresser. She did not have loss of consciousness. She is not on blood thinners. She has no facial bony tenderness. She is able to open and close her jaw normally. She does have a 1 cm laceration with surrounding swelling/contusion. She also sustained a skin tear to the right elbow but has no bony tenderness and normal range of motion of the elbow. Imaging not indicated. Tetanus updated. After discussion with patient she really would prefer no stitches. The skin tear on the elbow was easily amendable to skin adhesive. Facial laceration was a little bit gaping but approximated quite easily without significant tension. Edges did come together fairly nicely and skin adhesive was applied. Wound care and return precautions provided. Recommend ice on and off over the weekend to help with the swelling. Acetaminophen for pain. Follow-up with primary care next week as needed. HPI General Date/Time Provider Initiated Documentation: 11/23/22 19:06 . HPI Narrative: Patient presents to the ED status post fall at home. She and her were making the bed. Her feet got tangled up in the bedding causing her to fall. She struck her cheek on the corner of a dresser. She sustained a laceration to the right cheek. She did not have loss of consciousness. Her face did swell up in the area but she denies any difficulty opening and closing mouth, facial pain. She denies any neck pain. She also struck her elbow on something and has laceration there as well. No elbow pain. She denies other injury. She is not on blood thinners. Related Data Home Medications Medication Instructions Recorded Confirmed Scot Mag Zinc + D Tab 1 tab PO DAILY 04/02/12 07/29/22 ascorbic acid (vitamin C) 500 mg 500 mg PO DAILY 05/25/13 07/29/22 tablet (Vitamin C) red yeast rice 600 mg tablet 1,200 mg PO DAILY 12/15/18 07/29/22 vitamin B complex 1 cap PO DAILY 12/15/18 07/29/22 vit C 250 mg-vit E 90 mg-zinc 40 1 tab PO BID 06/06/22 07/29/22 mg-copper 1 [id number] capsule (PreserVision AREDS-2) benazepril 20 1 tab PO DAILY #90 tabs 11/19/22 mg-hydrochlorothiazide 25 mg tablet amoxicillin 500 mg capsule mg 11/23/22 11/23/22 Previous Rx's Medication Instructions Recorded benazepril 20 1 tab PO DAILY #90 tabs 11/19/22 mg-hydrochlorothiazide 25 mg tablet Allergies Allergy/AdvReac Type Severity Reaction Status Date / Time No Known Drug Allergies Allergy Unverified 08/08/22 09:59 General Stated Complaint: Fall/Non TraumaCriteria JING: 3 Review of Systems Narrative: Per HPI PFSH All Active Problems Skin tear of elbow without complication (Acute) Laceration of face (Acute) 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 Son No problems noted. Maternal Grandfather , at 31 of TB No problems noted. Maternal Grandmother Colitis Paternal Grandfather Stroke Paternal Grandmother Stroke Social History Smoking/Tobacco Use Status: Former Tobacco Use Quit Date: 08/12/70 Tobacco: How many years used: 4 Second Hand Exposure: Yes Smoking risk assessment performed?: Yes Alcohol Intake: current Alcohol Intake frequency: 0-2 drinks per day Alcohol type: wine Drug use: Never Substance use type: former substance user and marijuana Caregiver/Support person: No Household members: spouse Housing: house Communication Needs: None Do you need help understanding health information?: Never Pets and animals: No Sexually active: Yes Do you think of yourself as: straight/heterosexual Current gender identity: female What is your relationship status?: How often do you talk on the phone with friends or family?: three or more times per week How often do you get together with friends or relatives?: once per week How often do you attend roman catholic or yazdanism services?: 1-3 times per year Do you belong to any clubs or organized social groups?: yes Panel score (0-1 are the most socially isolated patients): 3 NHANES result reviewed/action taken: Yes What type of physical activity do you participate in: walking, bicycling and other Details: PT Duration: 45-60 minutes/day Frequency: 3-4 times per week Tawnya/Sabianism: Moravian Special tawnya needs: No Seatbelt use: always Drive intox or ride w/intox city bus driver: No Do you feel safe at home: Yes Do you feel safe in your relationship?: Yes Female Reproductive History Menstrual Menopause type: natural History History 6 Para Hx # Term Pregnancies Multiple births Hx # Pregnancies Ectopic pregnancies AB induced Hx Number of Living Children 1 AB spontaneous 5 Exam Narrative Exam Narrative: Const: WDWN female in NAD. HEENT: NC. Right cheek swelling. 1 cm linear laceration to right cheek. No facial bony tenderness. Able to open and close mouth normally. Neck: Supple. Trachea midline. Lungs: Normal respiratory effort. Neuro: A+O x 3. Normal speech, mentation, gait. Cranial nerves II - XII grossly intact. No gross motor or sensory deficit. Ext: No C/C/E. No bony tenderness or deformity. Small skin tear to the right olecranon region. Course Vital Signs Vital signs: Vital Signs Temperature 97.2 F L 11/23/22 18:53 Pulse 63 11/23/22 18:53 Respiratory Rate 18 11/23/22 18:53 Blood Pressure 178/74 H 11/23/22 18:53 Pulse Oximetry 99 11/23/22 18:53 Temperature 97.2 F L 11/23/22 18:53 Temperature Source Temporal Artery Scan 11/23/22 18:53 Pulse 63 11/23/22 18:53 Respiratory Rate 18 11/23/22 18:53 Respiratory Effort Normal 11/23/22 18:57 Blood Pressure 178/74 H 11/23/22 18:53 Blood Pressure Position Sitting 11/23/22 18:53 Pulse Oximetry 99 11/23/22 18:53 Oxygen Delivery Method Room Air 11/23/22 18:53 Oxygen Flow Rate 0 11/23/22 18:53 Pain Level 5 11/23/22 18:53 Procedures Laceration Laceration 1: Site: face Side (If applicable): right Size (cm): 1 Description: linear Depth: simple, single layer Local Anesthetic: other anesthetic (LET) Pre-repair: wound explored and irrigated extensively Skin layer closed with: other (Skin adhesive) Laceration 2: Site: upper extremity Side (If applicable): right Size (cm): 1 Description: other (Skin tear) Depth: simple, single layer Local Anesthetic: other anesthetic (LET) Pre-repair: wound explored and irrigated extensively Skin layer closed with: other (Skin adhesive) PAWSS Have you Been Recently Intoxicated or Drunk Within the Last 30 days?: No Have you Ever Experienced Previous Episodes of Alcohol Withdrawal?: No Have you ever Experienced Withdrawal Seizures?: No Have you ever Experienced Delirium Tremens(DT)s?: No Have you ever undergone Alcohol Rehabilitation Treatment (i.e, inpt ot outpatient treatment programs)?: No Have you ever Experienced Blackouts?: No Have you ever Combined Alcohol with other Downers within the last 90 days?: No Have you ever Combined Alcohol with any other Substance of Abuse during the last 90 days?: No Positive Blood Alcohol level on Presentation? [PCS.BAL]: No Evidence of Increased Autonomic Activity (i.e. HR>120, tremor, sweating, agitation, nausea)?: No Result: 0
[2022-11-23 20:49] VITALS: PULSE 82; RESP 18; TEMP 36.9; O2SAT 96
== END 2022-11-23 20:51 | disposition home or self-care (01) ==
PROVIDERS: Emergency Provider Emergency Medicine; PCP Nurse Practitioner Family
DX: S51.011A Laceration without foreign body of right elbow, initial encounter (principal); S01.411A Laceration without foreign body of right cheek and temporomandibular area, initial encounter; W18.09XA Striking against other object with subsequent fall, initial encounter; Y92.009 Unspecified place in unspecified non-institutional (private) residence as the place of occurrence of the external cause; Z23 Encounter for immunization; I10 Essential (primary) hypertension
CPT/HCPCS: 12041; 12051; 90471; 99283

== ENCOUNTER → 2023-06-17 00:45 | Outpatient (CLI) | payer MEDICARE, BC, SELFPAY ==
--- NOTE | 2023-06-17 07:15 | DI.RAD_ITS ---
Exam(s) XR HIP PELVIS ADULT BL EXAM: XR HIP PELVIS ADULT BL CLINICAL HISTORY: frequent falls,R29.6. TECHNIQUE: 2D digital imaging was performed of the pelvis and bilateral hips. Three images were obt ained. AP pelvis and lateral views of both hips were obtained. COMPARISON: No exams were available for comparison FINDINGS: BONES: No acute fracture is present. No bony destructive lesion is seen. JOINTS: No dislocation present. The right hip is well maintained. Moderate degenerative changes are seen in the left hip characterized by joint space narrowing and acetabular spurring. There are mild degenerative changes seen in the sacroiliac joints, right greater than left. The symphysis pubis is unremarkable. SOFT TISSUE: Normal. IMPRESSION: Moderate degenerative changes of the left hip. DATA REPOSITORY: RADIATION DOSE DELIVERED:
== END ==
PROVIDERS: PCP Nurse Practitioner Family; Visit Provider Nurse Practitioner Family
DX: M16.12 Unilateral primary osteoarthritis, left hip (principal)
CPT/HCPCS: 73521

== ENCOUNTER 2023-06-19 01:16 | Outpatient (CLI) | payer MEDICARE, BC, SELFPAY ==
[2023-06-19 12:56] LABS: HCT 40.7 % (36.0-46.0); MCH 30.8 pg (27.0-33.0); MCHC 34.4 % (32.0-36.0); MCV 90 fL (80-95); MPV 9.8 fL (8.0-11.0); Platelet Count 261 10^3/uL (130-400); RBC 4.55 10^6/uL (3.93-5.22); RDW 12.9 % (11.7-14.6); RDW-SD 41.8 fL; WBC 5.99 10^3/uL (4.4-10.8)
[2023-06-19 13:24] LABS: Hemoglobin A1C 5.1 % (<5.7)
[2023-06-19 13:39] LABS: ALT 22 U/L (14-59); AST 20 U/L (15-37); Albumin 4.3 g/dL (3.4-5.0); Alkaline Phosphatase 67 U/L (46-116); Anion Gap 6.3 mmol/L (3-11); BUN 14 mg/dL (7-18); CO2 30.7 mmol/L (21.0-32.0); CREATININE 0.6 mg/dL (0.55-1.02); Calcium 10.2 mg/dL (8.5-10.1); Chloride 101 mmol/L (98-107); Estimated GFR 91.82 (mL/min/1.73m2); Glucose 108 mg/dL (74-106); Potassium 3.6 mmol/L (3.5-5.1); Sodium 138 mmol/L (136-145); TSH (W/Ref FT4) 0.93 uIU/mL (0.36-3.74); Total Protein 7.6 g/dL (6.4-8.2); Vitamin B12 542 pg/mL (193-986)
[2023-06-20 10:03] LABS: Hepatitis C Ab w Rflx HCV PCR Negative (Negative)
== END 2023-06-19 01:17 | disposition home or self-care (01) ==
LOC: LOS 01:17
PROVIDERS: PCP Nurse Practitioner Family; Visit Provider Nurse Practitioner Family
DX: R42 Dizziness and giddiness (principal); R73.01 Impaired fasting glucose; I10 Essential (primary) hypertension; E78.5 Hyperlipidemia, unspecified
CPT/HCPCS: 36415; 80053; 85027; 86803; 82607; 83036; 84443

== ENCOUNTER → 2023-07-08 00:56 | Outpatient (CLI) | payer MEDICARE, BC, SELFPAY ==
--- NOTE | 2023-07-08 07:45 | DI.MRI_ITS ---
Exam(s) MR BRAIN WO EXAM: MR BRAIN WO CLINICAL HISTORY: frequent falls,dizziness,r29.6,r42 TECHNIQUE: Multiplanar multisequence MRI of the brain was performed. COMPARISON: CT CT HEAD FACIAL WO from 07/29/2022 FINDINGS: The examination is limited due to patient motion artifact. VENTRICLES AND EXTRA AXIAL SPACES: Normal in size and morphology for the patient's age. MIDLINE SHIFT: None. CEREBRAL PARENCHYMA: No focus of restricted diffusion to suggest acute infarct. No space-occupying le ry identified. There are few areas of hyperintense signal seen in the white matter on the FLAIR and T2 weighted images most consistent with small vessel ischemic disease. HEMORRHAGE: There is a focus of hypointense signal in the left frontal lobe on the gradient images. BRAINSTEM/CEREBELLUM: Normal. CALVARIUM: Normal. VISUALIZED PARANASAL SINUSES/MASTOIDS:There is mucosal thickening in the right maxillary sinus. The remaining visualized paranasal sinuses and mastoid air cells are clear. [place]: Normal flow void. PITUITARY GLAND: Unremarkable. OTHER FINDINGS: None. IMPRESSION: 1. Age-related cerebral atrophy and small vessel ischemic disease. 2. Focus of hypointense signal on the gradient images in the left frontal lobe. This can be seen wit h small microhemorrhage, vascular malformation or amyloid disease among other causes. 3. No evidence of an acute infarct. DATA REPOSITORY:
--- NOTE | 2023-07-08 07:45 | DI.MRI_ITS ---
Exam(s) MR CERVICAL SPINE WO EXAM: MR CERVICAL SPINE WO CLINICAL HISTORY: frequent falls, dizziness,r29.6,r42 TECHNIQUE: Multiplanar multisequence MRI of the cervical spine was performed without intravenous con trast. COMPARISON: No exams were available for comparison FINDINGS: BONES: Vertebral body heights are maintained. Endplate degenerative signal changes are present. Oste ophytes are seen at multiple levels of the cervical spine. Alignment is normal. There are hemangioma or fatty rest in the C3 and T4 vertebral bodies. CERVICAL CORD: Craniovertebral junction is unremarkable. Please see below under the C5-6 level. SOFT TISSUES: There is a 2.4 x 2.4 cm left thyroid nodule. There are smaller nodule seen in the righ t lobe of the thyroid gland. Nonemergent thyroid ultrasound is recommended for further evaluation. C2-3: No disc herniation or bulge is identified. No significant central spinal canal or neural forami nal stenosis. C3-4: No disc herniation or bulge is identified. No significant central spinal canal or neural forami nal stenosis C4-5: There is prominence of the osteophyte disc complex. No significant central spinal canal stenos is is seen. No significant neural foraminal stenosis is present. C5-6: There is prominence of the osteophyte disc complex. Degenerative changes of the uncovertebral joints are also present, left greater than right. There is resultant central spinal canal stenosis w ith an AP diameter of 6 mm. There is flattening of the spinal cord and hyperintense signal seen with in the spinal cord at this level. Bilateral neural foraminal stenosis is present. C6-7: There is prominence of the osteophyte disc complex. There are degenerative changes of the left uncovertebral joint causing mild left neural foraminal stenosis. There is mild narrowing of the tres tral spinal canal. No significant right neural foraminal stenosis is present. C7-T1: No disc herniation or bulge is identified. No significant central spinal canal or neural lana inal stenosis IMPRESSION: 1. Marked degenerative changes seen at C5-C6 resulting in central spinal canal stenosis and flattenin g of the spinal cord with mild malacia in the spinal cord at this level. 2. Multilevel degenerative changes in the cervical spine resulting in central spinal canal or neural foraminal stenosis as described above. 3. Multinodular thyroid gland. Nonemergent thyroid ultrasound is recommended for further evaluation. Unexpected findings DATA REPOSITORY:
== END ==
PROVIDERS: PCP Nurse Practitioner Family; Visit Provider Nurse Practitioner Family
DX: M48.02 Spinal stenosis, cervical region (principal); E04.2 Nontoxic multinodular goiter; R29.6 Repeated falls; R42 Dizziness and giddiness; I67.89 Other cerebrovascular disease
CPT/HCPCS: 70551; 72141

== ENCOUNTER 2024-07-01 02:34 | Outpatient (CLI) | payer MEDICARE, BC, SELFPAY ==
[2024-07-01 12:47] LABS: Anion Gap 6.8 mmol/L (3-11); BUN 20 mg/dL (7-18); CO2 32.2 mmol/L (21.0-32.0); CREATININE 0.7 mg/dL (0.55-1.02); Calcium 9.8 mg/dL (8.5-10.1); Chloride 104 mmol/L (98-107); Estimated GFR 87.92 (mL/min/1.73m2); Glucose 90 mg/dL (74-106); Potassium 3.7 mmol/L (3.5-5.1); Sodium 143 mmol/L (136-145); TSH (W/Ref FT4) 1.29 uIU/mL (0.36-3.74); Vitamin B12 609 pg/mL (193-986)
[2024-07-01 19:13] LABS: HBs Antibody, Quant 39.7 mIU/mL (See Note); Hep B Surface Ab Positive (See Note); Hepatitis B Core Antibody Negative (Negative); Hepatitis B Surface Antigen Negative (Negative)
[2024-07-01 19:20] LABS: HIV-1/2 Ag & Ab Screen Negative (Negative)
== END 2024-07-01 02:35 | disposition home or self-care (01) ==
LOC: LOS 02:35
PROVIDERS: PCP Nurse Practitioner Family; Visit Provider Nurse Practitioner Family
DX: I10 Essential (primary) hypertension; E04.2 Nontoxic multinodular goiter; Z11.4 Encounter for screening for human immunodeficiency virus [HIV]; Z11.59 Encounter for screening for other viral diseases
CPT/HCPCS: 36415; 80048; 86704; 86706; 87340; 87389; 82607; 84443

== ENCOUNTER 2025-07-05 03:48 | Outpatient (CLI) | payer MEDICARE, BC, SELFPAY ==
[2025-07-05 14:29] LABS: Anion Gap 9.7 mmol/L (3-11); BUN 19 mg/dL (9-23); CO2 29.3 mmol/L (20.0-31.0); Calcium 9.5 mg/dL (8.3-10.6); Chloride 103 mmol/L (98-107); Glucose 95 mg/dL (74-106); Potassium 3.7 mmol/L (3.5-5.1); Sodium 142 mmol/L (136-145)
== END 2025-07-05 03:49 | disposition home or self-care (01) ==
PROVIDERS: PCP Nurse Practitioner Family; Visit Provider Nurse Practitioner Family
DX: I10 Essential (primary) hypertension (principal)
CPT/HCPCS: 36415; 80048